=== PATIENT | female | born 1930 | race Caucasian/White ===

== ENCOUNTER 2016-07-01 16:17 | Inpatient (IN) | payer MEDICARE, BC ==
[~2016-07-01] VITALS: Ht 175.3 cm; Wt 84.0 kg
--- NOTE | ~2016-07-01 | CO ---
ADMIT: 07/01/2016 RM/LOC: 530 [facility] MR#: [id number] [address] [address] [address] [place] [address] Consultation SEX: F AGE: 85 : 1930 DATE OF CONSULTATION: 07/01/2016 ATTENDING PHYSICIAN: Maine Lantigua CONSULTING PHYSICIAN: Rodrigo Szymanski MD CHIEF COMPLAINT: Right hip pain. HISTORY OF PRESENT ILLNESS: This is an 85-year-old female, who had a mechanical fall at home, suffering right femoral neck fracture, and was sent here to the ED. The x-ray confirmed femoral neck fracture. She had of note been off her Coumadin due to supratherapeutic prior to this fall, had a full work up. No other major issues. REVIEW OF SYMPTOMS: Otherwise negative. PAST MEDICAL HISTORY: Atrial fibrillation, on Coumadin. INR currently is about 3.5. OBJECTIVE: GENERAL: She is awake, alert and oriented, in no acute distress. EXTREMITIES: She has brisk capillary refill. The right lower extremity has sensation intact to light touch. She has pain with log roll. Little bit short and externally rotated but not significantly. X-RAY: Shows an impacted right femoral neck fracture. ASSESSMENT: An 85-year-old female with right impacted femoral neck fracture. PLAN: We discussed options for treatment including risks and benefits of non- operative treatment, surgery for hip pinning versus hemiarthroplasty, total arthroplasty with the patient. We discussed again the benefits of all those and given her supratherapeutic INR and her current declining mobility, although intact neurologic status, I think the safest thing to do would be hip pinning, so we were going to go ahead and schedule her for that for tomorrow once cleared by the medical doctors. Rodrigo Szymanski MD/ gerard JOB #: [id number] CC: Maine Lantigua, Attending Physician Maine Lantigua, Family Physician
[~2016-07-01 16:17] MED LIST: COUMADIN2.5 MG PO; COUMADIN5 MG PO; DELTASONE DPS1 MG PO; FLEXERIL DPS5 MG PO; HYDROCHLOROTH12.5 M1 PO; LIPITOR DPS10 MG PO; MAALOX DPS30 ML PO; NORCO 5-325 TA1 EACH PO; NORVASC2.5 MG PO; PREVACID30 MG PO; PRO-AMATINE2.5 MG PO; PROTONIX40 MG PO; SURFAK DPS240 MG PO; SYNTHROID112 MCG PO; TAMBOCOR100 MG PO; TOPROL XL DPS25 MG PO; TYLENOL DPS325 MG PO; VITAMIN D50000 UNIT PO; ZESTRIL DPS10 MG PO; ZOLOFT DPS50 MG PO
--- NOTE | 2016-07-07 13:22 | HP ---
ADMIT: 07/01/2016 RM/LOC: 530 [facility] MR#: [id number] [address] [address] [address] [place] [address] History and Physical SEX: F AGE: 85 : 1930 DATE OF SERVICE: CHIEF COMPLAINT: Fall and hip pain. HISTORY OF PRESENT ILLNESS: The patient is an 85-year-old female, normally resides at home. Had a fall at home. Prior to this over the last month or so, has been increasingly weak. Was tried on some Sinemet for a week, did not help her so she stopped it. Also, had an INR at 5.2 on Wednesday. She has been holding her Coumadin in the last 2 days. No bleeding issues recently. Has been eating and drinking well lately. No fevers. No chills. No shortness of breath. No chest pain. Just has pain in her right hip. Did not strike her head. No loss of consciousness. It sounds like she was bending over to pick something up in the kitchen it sounds like. PAST MEDICAL HISTORY: 1. History of diastolic dysfunction. 2. History of pacemaker sick sinus syndrome. 3. Hypertension. 4. Hyperlipidemia. 5. Macular degeneration. 6. Obstructive sleep apnea. 7. Atrial fibrillation, on anticoagulation. 8. History of PMR. 9. Vitamin D deficiency. 10.Thyroid cancer status post thyroidectomy. MEDICATIONS: She is on: 1. Tylenol. 2. Alprazolam. 3. Maalox. 4. Atorvastatin. 5. Vitamin D3. 6. Premarin cream. 7. Flecainide. 8. Hydroxyzine. 9. Lansoprazole. 10.Synthroid. 11.Loratadine. 12.Metoprolol. 13.Midodrine 15 mg 3 times a day. 14.Mirtazapine. 15.Prednisone 3 mg daily. 16.Sertraline. 17.Coumadin. ALLERGIES: INCLUDE CARDIZEM, PENICILLIN, PROPOXYPHENE, TRAMADOL, AND AMITRIPTYLINE. PAST SURGICAL HISTORY: Includes hysterectomy, pacemaker placement, and spinal ADMIT: 07/01/2016 RM/LOC: 530 [facility] MR#: [id number] [address] [address] [address] [facility] [address] History and Physical SEX: F AGE: 85 : 1930 surgery. FAMILY HISTORY: Significant for sister had lung cancer. Father had diabetes. Son has had a blood clot. REVIEW OF SYSTEMS: As per HPI. Otherwise, completely reviewed and negative. PHYSICAL EXAMINATION: VITAL SIGNS: Initial blood pressure 181/59, temperature 97.1, heart rate 62, respiratory rate 16, and O2 saturation 92% on room air. GENERAL: She is alert and oriented x3, in no acute distress. Resting comfortably in bed at this time. If moves, seems to be uncomfortable at times. HEENT: Normocephalic, atraumatic. Pupils equal, round, and reactive to light and accommodation. Extraocular muscles are intact. Dry mucous membranes. NECK: No lymphadenopathy. Soft, supple. Trachea is midline. LUNGS: Clear to auscultation bilaterally. No wheezes, rales, or rhonchi. HEART: Regular rate and rhythm. No murmurs, rubs, or gallops. ABDOMEN: Soft, nontender, nondistended. Bowel sounds present. EXTREMITIES: No cyanosis or clubbing. No edema. Her right hip tender laterally. No large bruising noted. NEUROLOGICAL: No focal deficits noted. Cranial nerves II through XII grossly intact. SKIN: No rashes noted. Some bruising on her left hip, actually not her right. No other bruising noted. Dry skin. PSYCHIATRIC: Very pleasant. Normal insight. Interacts with her son well. He is at bedside. LABORATORY AND X-RAY DATA: Creatinine 1.3. INR 3.5. White count 10.6, hemoglobin 12.7, and platelets 140. Potassium 3.9. Sodium 145. Chest x-ray, she has mild cardiomegaly, pacemaker. Otherwise normal. X-ray of her hip shows an acute nondisplaced mildly impacted right femoral neck fracture. EKG is pending. ASSESSMENT AND PLAN: 1. Acute hip fracture. 2. Atrial fibrillation, on chronic anticoagulation. 3. Postsurgical hypothyroidism. ADMIT: 07/01/2016 RM/LOC: 530 [facility] MR#: [id number] [address] [place] [address] [address] [facility] [address] History and Physical SEX: F AGE: 85 : 1930 4. Hypertension. 5. Obstructive sleep apnea. 6. Polymyalgia rheumatica, on chronic steroids. PLAN: At this point in time, we will give her some IV vitamin K to try to get a reversed down for hip pinning. I discussed with Orthopedic Surgery at bedside. Goals to be her INR at least less than 2. We will otherwise continue her home medications for the most part. We will continue her on the CPAP. She is requiring a little bit of oxygen after some pain medication now. We will stress dose some steroids hydrocortisone tomorrow morning given her history of chronic steroid use. Get her n.p.o. at midnight. Give her some maintenance fluids. Get her pain under control. Blayne Witt MD/ gerard JOB #: [id number] CC: Maine Lantigua, Attending Physician Maine Lantigua, Family Physician
[2016-07-07] MEDS ORDERED: COUMADIN2.5 MG PO (18:35)
[2016-07-07] MEDS ORDERED: PROTONIX40 MG PO (18:35)
[2016-07-07] MEDS ORDERED: LIPITOR DPS10 MG PO (18:35)
[2016-07-07] MEDS ORDERED: COUMADIN5 MG PO (18:35)
[2016-07-07] MEDS ORDERED: DELTASONE DPS1 MG PO (18:35)
[2016-07-07] MEDS ORDERED: SYNTHROID112 MCG PO (18:36)
[2016-07-07] MEDS ORDERED: TAMBOCOR100 MG PO (18:36)
[2016-07-07] MEDS ORDERED: SENOKOT S1 TAB PO (18:36)
[2016-07-07] MEDS ORDERED: REMERON DPS15 MG PO (18:36)
[2016-07-07] MEDS ORDERED: TOPROL XL DPS25 MG PO (18:36)
[2016-07-07] MEDS ORDERED: BENADRYL-DPS25 MG PO (18:37)
[2016-07-07] MEDS ORDERED: ATARAX-DPS25 MG PO (18:37)
[2016-07-07] MEDS ORDERED: CATAPRES-DPS0.1 MG PO (18:37)
[2016-07-07] MEDS ORDERED: ZOLOFT DPS100 MG PO (18:37)
[2016-07-07] MEDS ORDERED: VITAMIN B-12500 MCG PO (18:37)
[2016-07-07] MEDS ORDERED: MILK OF MAGNESI10 ML PO (18:38)
[2016-07-07] MEDS ORDERED: NORCO 5-325 TA1 EACH PO (18:38)
[2016-07-07] MEDS ORDERED: CLARITIN DPS10 MG PO (18:38)
[2016-07-07] MEDS ORDERED: COMPAZINE DPS5 MG PO (18:38)
[2016-07-07] MEDS ORDERED: TYLENOL DPS325 MG PO (18:39)
[2016-07-07] MEDS ORDERED: SURFAK DPS240 MG PO (18:39)
--- NOTE | 2016-07-10 10:42 | OR ---
ADMIT: 07/01/2016 RM/LOC: 530 [facility] MR#: [id number] [address] [address] [address] [place] [address] Operative/Delivery Room Report SEX: F AGE: 85 : 1930 SURGERY DATE: 07/02/2016 SURGEON: Rodrigo Szymanski MD PREOPERATIVE DIAGNOSIS: Right Garden II impacted femoral neck fracture. POSTOPERATIVE DIAGNOSIS: Right Garden II impacted femoral neck fracture. PROCEDURE PERFORMED: Right hip pinning. IMPLANTS: Three 73 cannulated screws, two were 90 and one was a 95. COMPLICATIONS: None. BLOOD LOSS: 10. INDICATIONS: Gurmeet is an 85-year-old female with sleep apnea, atrial fibrillation and history of thyroid cancer who had been off her anticoagulation for a few days now because she was hyper-anticoagulated with an INR of over 4-1/2 or so, who had a mechanical fall from standing. Landed on her right hip. She had significant pain. She attempted and was able to walk a few steps but the pain was too bad but she was able to walk on it for a very short time immediately after the injury. She went to the ER and had x- ray that confirmed a femoral neck fracture, impacted. I discussed with her and her family the options for treatment of this which included pinning versus hemiarthroplasty versus total arthroplasty. Given the stable nature, this is an impacted Garden II fracture and very stable to the point where she was even able to walk on it a bit and with her kind of labile INR we had discussed risks, benefits and options and ultimately came to a consensus that we would go ahead and proceed with a hip pinning knowing the risks and benefits involved with that as well as the alternatives. Written informed consent was signed and then we had planned for surgery for today. DESCRIPTION OF PROCEDURE: The patient was identified in the preoperative holding area. Written informed consent was confirmed, site was marked. Brought to the OR, placed supine, general anesthesia was induced. She was then moved to the fracture table. The right leg in the boot, left leg in the semi-lithotomy position. She was prepped and draped in the usual sterile fashion. Time-out was performed. Preop antibiotics were confirmed. We began bringing in x-ray and under orthogonal views got my trajectory from my first pin which was centered on the lateral and placed inferiorly along the calcar on the AP, fired this into the head in a position where I liked it, that was a very nice pin and then went to an anterior pin that was centered on the AP through the neck or close to and then try to get it along the posterior margin on the neck, on the lateral foot. Then I placed one just anterior to that. He had three good relatively parallel pins in good position, put it on magnification on the fluoro and got several views to confirm that there was no intra-articular penetration, I liked my length of all these pins and then measured them all, put the screws in. Once I had the screws in I backed the ADMIT: 07/01/2016 RM/LOC: 530 [facility] MR#: [id number] [address] [place] [id number] [address] [facility] [place] [address] Operative/Delivery Room Report SEX: F AGE: 85 : 1930 guidewire pin out just enough so that I could only see the tip of the screw on the x-ray and again went under fluoro and went through a range of angles of the femoral head under magnification to confirm there was no intra-articular penetration and that the threads were across the fracture site. This was a very nice stable construct in good positioning of all the pins. So went ahead and irrigated out the wounds and injected with 0.5% Marcaine with epinephrine and then placed du for the incisions. She was then extubated, brought to the postoperative care unit in good condition. No complications. Postoperatively, I will keep her toe-touch weightbearing for about six weeks just to protect that to prevent any penetration or further collapse of the fracture. She has been admitted to the medical service for further medical management and is now able to resume anticoagulation with her Coumadin. I will see her in about two weeks after the surgery in clinic to get repeat x- rays. Rodrigo Szymanski MD/ masoud JOB #: [id number] CC: Maine Lantigua, Attending Physician Maine Lantigua, Family Physician
--- NOTE | 2016-07-13 07:46 | ER ---
ADMIT: 07/01/2016 RM/LOC: ER [facility] MR#: [id number] [address] [address] [address] [place] [address] Emergency Room Report SEX: F AGE: 85 : 1930 DATE: 07/01/2016 TIME: 1617 hours. CHIEF COMPLAINT: Partial trauma and fall. HISTORY OF PRESENT ILLNESS: The patient is an 85-year-old who was about 3-4 hours prior to arriving to the emergency room was leaning forward, kind of tripped and fell. She laid on her right hip. She said she also bumped her head a little bit but has no head pain. No loss of consciousness. Rates the pain 2/10 unless she tries to walk on it. It is worse. She is not on blood thinner, Coumadin, so by definition, she was a partial trauma but came in with vital signs stable, just on the gurney. REVIEW OF SYSTEMS: GENERAL: No loss conscious. HEENT: No head or neck pain. CARDIOVASCULAR SYSTEM: No chest pain. EXTREMITIES: Right hip pain. Rest of review of systems normal. PAST MEDICAL HISTORY: Hypertension, anxiety, pacer, hyperlipidemia, thyroidectomy, reflux, depression, history of spinal fusion. ALLERGIES: NO KNOWN ALLERGIES. CURRENT MEDICATIONS: Include: 1. Flecainide. 2. Xanax. 3. Atorvastatin. 4. Vitamins. 5. Prednisone. 6. Toprol. 7. Thyroid. 8. Lansoprazole. 9. Sertraline. 10.OxyContin. PHYSICAL EXAMINATION: VITAL SIGNS: Temp 97.1, pulse 60, respirations 16, blood pressure 101/59, sat 93%. GENERAL: No acute distress. HEENT: Atraumatic and normocephalic. Pupils are equal, round, reactive. Extraocular movements intact. TMs clear. NECK: Soft, supple. No pain to palpation. LUNGS: Clear. HEART: Regular. ABDOMEN: Soft. EXTREMITIES: Left lower and bilateral upper is grossly normal. Right lower, she has pain of the right hip with any range of motion. She has no pain in the knee. Neurovascularly intact distally. NEUROLOGIC: Alert and oriented, nonfocal. ADMIT: 07/01/2016 RM/LOC: ER [facility] MR#: [id number] [id number] [address] [address] [place] [address] Emergency Room Report SEX: F AGE: 85 : 1930 EMERGENCY DEPARTMENT COURSE: We did call partial due to bump in her head and anticoagulated; however, she has no indications for CT scan at this time. An IV was established. We titrated morphine, gave her Zofran. Normal saline was hung. A chest x-ray was obtained. A pelvis and right hip revealed nondisplaced subcapital femoral neck fracture. We will order baseline labs including coags. I talked to Dr. Lantigua and Dr. Szymanski. We will admit to the hospital. ASSESSMENT: 1. Right hip fracture. 2. Partial trauma secondary to fall with anticoagulation and did hit her head. 3. Mild head contusion. PLAN: Admit to the hospital. Jasson Ceballos MD/ gerard JOB #: [id number] CC: Jasson Ceballos MD, Attending Physician Maine Lantigua MD, Family Physician
--- NOTE | 2016-08-01 09:21 | DS ---
ADMIT: 07/01/2016 RM/LOC: 530 [facility] MR#: [id number] [address] [address] [address] [place] [address] Discharge Summary SEX: F AGE: 85 : 1930 ADMISSION DATE: 07/01/2016 DISCHARGE DATE: 07/06/2016 DISCHARGE DIAGNOSES: 1. Fall. 2. Right femur fracture. 3. Urinary tract infection. 4. Paroxysmal atrial fibrillation. 5. Hypertension. 6. Orthostatic hypotension. 7. Anxiety. 8. Hypothyroidism. 9. Hyperlipidemia. 10.Gastroesophageal reflux disease. 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 12.Fall. 13.Bruising of the head. 14.Macular degeneration. 15.Obstructive sleep apnea. 16.Vitamin D deficiency. 17.Polymyalgia rheumatica. 18.History of pacemaker.. HOSPITAL COURSE: The patient was admitted after a fall. She had sustained a fracture to her right femur. She underwent surgery for repair of this and tolerated that quite well. She otherwise was noted to be a little bit dehydrated. She was given some IV fluids. Her INR was monitored. She had a little bit of low-grade temp but that was controlled. She was having a little bit of trouble reading. Since she had hit her head we went ahead and did a CT scan that looked good. Overall, the patient was doing quite well. The plan was for her to be discharged to a skilled facility. DISCHARGE INSTRUCTIONS: 1. Coumadin. 2. Prednisone 3 mg p.o. daily. 3. Lipitor 10 mg p.o. daily. 4. Lansoprazole 30 mg p.o. daily. 5. Remeron 15 mg p.o. daily. ADMIT: 07/01/2016 RM/LOC: 530 [facility] MR#: [id number] [address] [address] [address] [place], [place] [address] Discharge Summary SEX: F AGE: 85 : 1930 6. Senokot one p.o. b.i.d. 7. Synthroid 112 mcg p.o. daily. 8. Tambocor 100 mg p.o. b.i.d. 9. Toprol 25 mg p.o. daily. 10.Vitamin B12 500 mcg p.o. daily. 11.Zoloft 100 mg p.o. daily. 12.Norvasc 2.5 p.o. daily. 13.She has multiple p.r.n. medications. DISCHARGE INSTRUCTIONS: PT and OT to evaluate. Follow up with Dr. Lantigua in one week. Follow up with Dr. Szymanski 07/16. Have an INR daily. Have a regular diet. Maine Lantigua MD/ vdg JOB #: [id number] CC: Maine Lantigua MD, Attending Physician Maine Lantigua MD, Family Physician
== END 2016-07-06 16:10 | DRG 481 ==
LOC: ER 16:17 → 5MS 17:20
PROVIDERS: ADMIT Internal Medicine
PROC: 0QH634Z Insertion of Internal Fixation Device into Right Upper Femur, Percutaneous Approach (ICD-10-PCS; principal; 2016-07-02)
DX: S72.001A Fracture of unspecified part of neck of right femur, initial encounter for closed fracture (principal); N39.0 Urinary tract infection, site not specified; I48.0 Paroxysmal atrial fibrillation; I10 Essential (primary) hypertension; I95.1 Orthostatic hypotension; F41.9 Anxiety disorder, unspecified; E03.9 Hypothyroidism, unspecified; E78.5 Hyperlipidemia, unspecified; K21.9 Gastro-esophageal reflux disease without esophagitis; E89.0 Postprocedural hypothyroidism; W19.XXXA Unspecified fall, initial encounter; S00.93XA Contusion of unspecified part of head, initial encounter; H35.30 Unspecified macular degeneration; G47.33 Obstructive sleep apnea (adult) (pediatric); E55.9 Vitamin D deficiency, unspecified; M35.3 Polymyalgia rheumatica; Z79.52 Long term (current) use of systemic steroids; Z95.0 Presence of cardiac pacemaker; Z79.01 Long term (current) use of anticoagulants; Z98.1 Arthrodesis status; Z85.850 Personal history of malignant neoplasm of thyroid